=== PATIENT | male | born 1960 | race Caucasian/White ===

== ENCOUNTER 2020-07-28 06:38 | Emergency (ER) | payer BC ==
[2020-07-28 06:51] VITALS: BP 164/107
[2020-07-28] MEDS ORDERED: DOXYCYCLINE HYCLATE 100 MG TABLET PO ONE (09:12)
--- NOTE | 2020-07-28 09:19 | ER Document Report ---
ED Oral Problem - General Chief Complaint: Toothache Stated Complaint: MOUTH PAIN Time Seen by Provider: 07/28/20 09:07 Mode of Arrival: Ambulatory Information source: Patient, Relative Notes: Patient is a 59-year-old male comes emergency room complaining of right upper dental pain with some mild swelling. Patient states that started yesterday about noon went to bed with the last night woke up this morning it was much more swollen than it is now is gone down substantially. Patient also states she had a little bit of chills this morning when he woke up. He has a history of hypertension did not take any blood pressure medications today. Denies any difficulty swallowing. - HPI Patient complains to provider of: Swelling of face, Toothache Onset: Yesterday Onset: Gradual Quality of pain: Achy, Throbbing Severity: Moderate Pain Level: 2 Context: denies: Fractured tooth, Recent antibiotic use, Recent dental extractions Associated symptoms: Toothache Worsened by: Heat Relieved by: Nothing Similar symptoms previously: Yes Recently seen / treated by doctor/dentist: No - Related Data Allergies/Adverse Reactions: No Known Allergies Allergy (Verified 07/28/20 06:52) Home Medications: Thyroid medicine. HTN medicine Past Medical History - General Information source: Patient, Relative - Social History Smoking Status: Never Smoker Chew tobacco use (# tins/day): No Frequency of alcohol use: Occasional Drug Abuse: None Lives with: Family, Spouse/Significant other Family History: Reviewed & Not Pertinent Review of Systems - Review of Systems Constitutional: No symptoms reported, Diaphoresis EENT: Dental problem Cardiovascular: No symptoms reported Respiratory: No symptoms reported Gastrointestinal: No symptoms reported Genitourinary: No symptoms reported Male Genitourinary: No symptoms reported Musculoskeletal: No symptoms reported Skin: No symptoms reported Hematologic/Lymphatic: No symptoms reported Neurological/Psychological: No symptoms reported -: Yes All other systems reviewed and negative Physical Exam - Vital signs Vitals: Temp Pulse Resp BP Pulse Ox 98.2 F 103 H 18 164/107 H 98 07/28/20 06:50 07/28/20 06:50 07/28/20 06:50 07/28/20 06:50 07/28/20 06:50 Interpretation: Hypertensive, Tachycardic - Notes Notes: PHYSICAL EXAMINATION: GENERAL: Well-appearing, well-nourished and in no acute distress. HEAD: Examination patient's facial features show some mild swelling of the right upper maxillary sinus area. Palpation of the area does not show any fluctuance. There is no erythema noted at this time. EYES: Pupils equal round and reactive to light, extraocular movements intact, sclera anicteric, conjunctiva are normal. ENT: Examination patient's oral cavity shows there is to be swelling around the right upper mid molar around the gumline. Moderate erythema is noted as stated. There is no fluctuance on the gum palpation. There is no exudate noted on palpation. The tooth actually looks relatively good there is no sign of decay that I can see. NECK: Normal range of motion, supple without lymphadenopathy LUNGS: Breath sounds clear to auscultation bilaterally and equal. No wheezes rales or rhonchi. HEART: Tachycardic rate and rhythm without murmurs NEUROLOGICAL: Normal speech, normal gait. Normal sensory, motor exams PSYCH: Normal mood, normal affect. SKIN: Warm, Dry, normal turgor, no rashes or lesions noted. Course - Re-evaluation Re-evalutation: 07/28/20 09:19 Physical examination does not show any overt abscess that can be I&D. Either in the soft tissue of the cheek or in the gum area. We will go ahead and treat that this time with some Doxy to give broad coverage. Have informed patient should the swelling get worse or he has any difficulty breathing to return to ER for reevaluation. - Vital Signs Vital signs: Temp Pulse Resp BP Pulse Ox 98.2 F 103 H 18 164/107 H 98 07/28/20 06:50 07/28/20 06:50 07/28/20 06:50 07/28/20 06:50 07/28/20 06:50 - Laboratory Results Critical Laboratory Results Reviewed: No Critical Results - Radiology Results Critical Radiology Results Reviewed: No Critical Results Discharge - Discharge Clinical Impression: Dental infection Condition: Stable Disposition: HOME, SELF-CARE Instructions: Toothache ([facility]) Additional Instructions: Home and use warm moist compresses 3-4 times a day. Take the antibiotics until finished. As we discussed should the facial swelling get worse or you have difficulty swallowing or breathing return to ER at once for reevaluation. Should you spike a temperature does not go away on Tylenol Motrin return to ER for reevaluation. Prescriptions: Doxycycline Hyclate [Morgidox] 100 mg PO BID #20 capsule Forms: Elevated Blood Pressure Referrals: [facility] [Provider Group] - Follow up as needed
== END 2020-07-28 09:30 | disposition home or self-care (01) ==
LOC: ER 06:38
DX: K04.7 Periapical abscess without sinus (principal); K08.89 Other specified disorders of teeth and supporting structures; I10 Essential (primary) hypertension; Z79.899 Other long term (current) drug therapy; R00.0 Tachycardia, unspecified
CPT/HCPCS: 99283